=== PATIENT | male | born 1985 | race African-American/Black ===

== ENCOUNTER 2018-12-28 17:33 | Emergency (ER) | payer OTHER ==
[~2018-12-28] VITALS: Ht 177.8 cm; Wt 128.4 kg
[2018-12-28 17:53] LABS: URINE BILIRUBIN NEGATIVE (Negative); URINE BLOOD NEGATIVE (Negative); URINE CLARITY CLEAR; URINE COLOR YELLOW; URINE GLUCOSE-RANDOM* NEGATIVE (Negative); URINE KETONES NEGATIVE (Negative); URINE LEUKOCYTES-REFLEX NEGATIVE (Negative); URINE NITRITE-REFLEX NEGATIVE (Negative); URINE PROTEIN (DIPSTICK) 1+ (Negative); URINE SPECIFIC GRAVITY >= 1.030 (1.005-1.035)
[2018-12-28 18:10] LABS: BACTERIA-REFLEX 1-9 Few /HPF (None Seen); CASTS None Seen /LPF (None Seen); CRYSTALS None Seen /LPF (None Seen); MUCUS 4-6 Moderate strn/LPF (None Seen); SQUAMOUS None Seen /LPF (0-3); URINE RBC None Seen /HPF (0-2); URINE WBC-REFLEX None Seen /HPF (0-5)
[2018-12-28 18:19] LABS: BASOPHILS 1.4 % (0.0-2.0); HEMATOCRIT 45.1 % (42.0-52.0); HEMOGLOBIN 14.9 gm/dL (14.0-18.0); LYMPHOCYTES 18.9 % (24.0-44.0); MCH 30.1 pg (26.0-34.0); MCHC 33.1 g/dL (28.0-37.0); MCV 91.1 fL (80.0-100.0); MONOCYTES 9.2 % (1.0-8.0); POLYS 69.5 % (36.0-66.0); RBC 4.95 mil/uL (4.50-6.00); RDW 14.1 % (10.5-14.5)
[2018-12-28 18:28] LABS: CALCIUM 8.5 mg/dL (8.5-10.1); CREATININE 1.1 mg/dL (0.7-1.3); POTASSIUM 3.9 mmol/L (3.5-5.1)
[2018-12-28] MEDS ORDERED: DEPAKOTE500 MG PO ×4 (18:30→18:33)
[2018-12-28] MEDS ORDERED: HYDROCHLOROTHIA25 M2 PO ×2 (18:31→18:33)
[2018-12-28] MEDS ORDERED: LIPITOR40 MG PO ×2 (18:31→18:32)
[2018-12-28 18:34] LABS: ALBUMIN 3.7 g/dL (3.4-5.0); TOTAL BILIRUBIN 0.3 mg/dL (<0.1-1.0); TOTAL PROTEIN 7.3 g/dL (6.4-8.2)
[2018-12-28 18:44] LABS: LARGE PLATELETS SEVERAL; PLATELET COUNT 207 thou/uL (150-400)
[2018-12-28] MEDS ORDERED: ULTRAM 50MG TAB50 MG PO (19:47)
[2018-12-28 20:01] VITALS: BP 121/62
== END 2018-12-28 20:02 | disposition home or self-care (01) ==
LOC: ER 17:33
PROVIDERS: Nurse Practitioner
DX: N50.812 Left testicular pain (principal); N50.811 Right testicular pain; I10 Essential (primary) hypertension; F17.210 Nicotine dependence, cigarettes, uncomplicated; Z88.1 Allergy status to other antibiotic agents; Z88.2 Allergy status to sulfonamides; Z88.6 Allergy status to analgesic agent